=== PATIENT | female | born 1980 | race Hispanic/Latino ===

== ENCOUNTER 2018-10-17 13:16 | Emergency (ER) | payer BC ==
[2018-10-17 13:53] LABS: APPEARANCE,URINE CLOUDY (CLEAR); BILIRUBIN,URINE NEGATIVE (NEGATIVE); COLOR,URINE RED (YELLOW); GLUCOSE, URINE (UA) NEGATIVE (NEGATIVE); KETONES,URINE NEGATIVE (NEGATIVE); LEUKOCYTE ESTERASE ,URINE SMALL (NEGATIVE); NITRATE,URINE NEGATIVE (NEGATIVE); OCCULT BLOOD,URINE LARGE (NEGATIVE); PH,URINE 8.5 (5.0-8.0); PROTEIN,URINE 100 mg/dL (NEGATIVE); UROBILINOGEN,URINE 0.2 mg/dL (0.2-1.0)
[2018-10-17 14:00] LABS: HCG,QUAL RESULT POSITIVE (NEGATIVE)
[2018-10-17 14:07] LABS: RBC,URINE 51-100 /HPF (0-1)
[2018-10-17 14:08] LABS: BACTERIA,URINE Few /HPF (None Seen)
[2018-10-17 14:14] LABS: BASOPHILS % (AUTO) 0.8 % (0.0-5.0); EOSINOPHILS % (AUTO) 2.3 % (0.0-8.0); HEMATOCRIT 36.5 % (36-48); LYMPHOCYTES % (AUTO) 19.5 % (21.0-51.0); MEAN CORPUSCULAR HEMOGLOBIN 32.1 pg (27.0-33.0); MEAN CORPUSCULAR HGB CONC 33.7 g/dL (32.0-36.0); MEAN CORPUSCULAR VOLUME 95.4 fL (79-99); MONOCYTES % (AUTO) 6.4 % (3.0-13.0); PLATELET COUNT (AUTO) 178 K/uL (130-400); RED BLOOD CELL COUNT(AUTO) 3.83 MIL/uL (4.00-5.50); RED CELL DISTRIBUTION WIDTH 13.6 % (11.0-15.5); WHITE BLOOD COUNT (AUTO) 7.7 K/uL (4.8-10.8)
[2018-10-17 14:23] LABS: CREATININE 0.7 mg/dL (0.5-1.5); POTASSIUM 3.8 mmol/L (3.5-5.1)
[2018-10-17 14:26] LABS: INR 0.95 (0.85-1.15); PARTIAL THROMBOPLASTIN TIME 26.8 SEC (26.3-35.5)
[2018-10-17 14:52] LABS: ALBUMIN 3.5 g/dL (3.5-5.0); BILIRUBIN,TOTAL 0.4 mg/dL (0.2-1.0); TOTAL PROTEIN, SERUM 7.7 g/dL (6.0-8.3)
== END 2018-10-17 15:50 | disposition home or self-care (01) ==
LOC: EDH 13:16
DX: O20.0 Threatened abortion (principal); I10 Essential (primary) hypertension; Z3A.08 8 weeks gestation of pregnancy
CPT/HCPCS: 36415; 76801; 80053; 81001; 81025; 84702; 85025; 85610; 85730

== ENCOUNTER 2024-07-05 20:36 | Emergency (ER) | payer BC ==
[~2024-07-05] VITALS: Ht 160 cm; Wt 115.7 kg
[2024-07-05 20:40] VITALS: BP 147/82; PULSE 78; RESP 20; TEMP 97.5
[2024-07-05] MEDS ORDERED: INSULIN REGULAR, HUMAN 3ML 100 UNIT in 0.9%NACL 100ML 99 ML IV PRN (21:00)
[2024-07-05 21:19] LABS: RAPID GROUP A STREP negative (NEGATIVE)
[2024-07-05 21:24] LABS: SARS-CoV-2, RNA, NAAT POSITIVE SARS CoV-2 (NEGATIVE)
[2024-07-05 21:29] LABS: INFLUENZA TYPE A Negative For Type A (NEGATIVE); INFLUENZA TYPE B Negative For Type B (NEGATIVE)
--- NOTE | 2024-07-05 22:00 | ERN ---
ED Note History of Present Illness Stated Complaint: C/O COUGH, CONGESTION,PAIN TO EARS Chief Complaint: Cough Time Seen by MD: 20:39 Time Seen by Midlevel: 20:44 Dictation: 44-year-old female coming in complaining of cough congestion and anxiety this happened today at work. Patient states he also has ear fullness. Patient has a history of anxiety, hypertension and diabetes. Denies having any fever, nausea, or vomiting. Allergies: Coded Allergies: No Known Allergies (Unverified Allergy, Unknown, 07/05/24) Past Medical History Past Medical History: Anxiety, Hypertension Surgical History: None LMP: Jun 03, 2024 Review of System Dictation Constitutional: Negative for fever,chills, and weight loss Eyes: Negative for injury, pain,redness, and discharge ENT: Negative for injury,pain or swelling Cardiovascular: Negative for chest pain, palpitations, and edema Respiratory: Complaining of cough and congestion, no shortness a breath or wheezing Abdomen/GI: Negative for abdominal pain, nausea, vomiting, diarrhea, and constipation Back: Negative for injury and pain : Negative for injury, bleeding and discharge MS/Extremity: Negative for injury and deformity Skin: Negative for rash, and discoloration Neuro: Negative for headache, weakness, numbness, tingling, and seizure Psych: Negative for suicide ideation, homicidal ideation, and hallucinations Review of Systems: was completed Initial Vital Sign VS Vital Signs Date Time Temp Pulse Resp B/P (MAP) Pulse Ox O2 Delivery O2 Flow Rate FiO2 07/05/24 20:40 97.5 78 20 147/82 Room Air Physical Exam Dictation General: awake, alert, NAD Head/Face: Normocephalic, atraumatic Eyes: PERRL, EOMI, vision at baseline ENT: oral cavity clear, TMs clear, no signs of infection Neck: Trachea midline, supple, no nuchal rigidity Cardiovascular: RRR, normal S1/S2, No MRGs, no JVD Respiratory: CTAB, no respiratory distress, No rales or wheezes Abdomen: Soft, non-tender, non-distended, normal bowel sounds, no guarding or rebound. Skin: Warm, dry, normal turgor, no rash MS/Extremity: Pulses equal, no cyanosis, neurovascular intact, FROM Neuro: COAx4, GCS 15, strength 5/5, CN 2-12 intact, normal cerebellar exam, normal gait, Psych: Normal behavior, mood, and affect normal Results (Laboratory/Radiology) Laboratory/Radiology Laboratory Tests Test 07/05/24 20:40 Influenza Type A Antigen Negative For Type A Influenza Type B Antigen Negative For Type B SARS-CoV-2, RNA, NAAT POSITIVE SARS CoV-2 Group A Streptococcus Rapid negative (NEGATIVE) Labs Reviewed?: Yes EKG Comment: Date:07/05/2041 Time:2040 Ventricular rate:72 [place] interval:144 QRS duration:1 QT/QTc:409/448 EKG interpretation: Sinus rhythm, low voltage, precordial leads, borderline T abnormalities, diffuse leads Reviewed by ED Attending no STEMI interpreted by ER MD ED Course ED Course Orders Procedure Category Date Status Time Covid Rna Naat LAB 07/05/24 Complete 20:38 Influenza Type A & B, LAB 07/05/24 Complete Rapid 20:38 Rapid (Group A Strep) LAB 07/05/24 Complete 20:38 12 Lead Ekg Tracing- EKG 07/05/24 Logged Technical 20:43 Insulin Regular, PHA 07/05/24 Complete Human 3ml (Humulin R 21:00 Current Medications Medications (Trade) Dose Ordered Sig/Cecy Route PRN Reason Start Time Stop Time Status Last Admin Dose Admin Insulin Human Regular 100 unit/ Sodium Chloride 100 ml @ 0 mls/hr AD PRN IV HYPERGLYCEMIA PROTOCOL 07/05/24 21:00 07/05/24 20:51 DC Vital Signs Date Time Temp Pulse Resp B/P (MAP) Pulse Ox O2 Delivery O2 Flow Rate FiO2 07/05/24 20:40 97.5 78 20 147/82 Room Air Medical Decision Making MDM MDM: 44-year-old female coming in complaining of cough congestion and anxiety this happened today at work. Patient states he also has ear fullness. Patient has a history of anxiety, hypertension and diabetes. Denies having any fever, nausea, or vomiting. Lung sounds are clear to auscultation, patient isn't hypoxic or tachypneic. Vital signs are stable. Serologies positive for COVID. Discussed findings with patient, educated patient to follow up with PCP in 1-2 days, she can take jddx-pms-snosdfm medications to treat symptoms like Tylenol, Motrin for fever and decongestants for congestion. She verbalized understanding, answered all questions. Differential; viral syndrome, influenza, COVID Rationale: Tests considered and ordered secondary to shared decision making include: Previous outside records reviewed: Old ER visits. Risk of complication and/or morbidity or mortality of patient management: None Medications-Per medication reconciliation Need for hospitalization: Patient does not meet criteria for hospitalization. Need for emergency major/minor surgery: No There are no social concerns with this patient. Prescription drug management Prescriptions will include symptomatic care Patient's prior external medical records from other ER visits were reviewed by me as indicated. Prior testing and results from previous visits were reviewed. Prior tests were taken into account with medical decision making and resource utilization, independent historian/historians were used to obtain complete medical history. I independently interpreted the test that were performed, results were reviewed by me and considered findings on radiology if ordered. Medical management and examination interpretation discussions were had by me with other qualified healthcare professionals as indicated for the patient's care. DX & DISP Disposition: Discharge Departure Impression: Primary Impression: COVID Condition: Stable Additional Instructions: Your swabs came out positive for COVID. There is no specific medication to treat COVID. You can take oedo-uwj-idwczdo medications to treat fever and body aches like Tylenol or Motrin. Can also try itlo-rgb-kywsiwe decongestants like Mucinex to treat or congestion. Follow up with your primary doctor in 1-2 days and return to the ER if you have worsening symptoms. Referrals: PAULIE PRECIADO [facility] (PCP) Time of Disposition: 21:58 SHANTELLE NICOLE NP Jul 05, 2024 22:00
--- NOTE | 2024-07-06 08:24 | EKG ---
[facility] Test Date: 2024-07-05 Test Time: 20:41:26 Pat Name: LISA CHAVIRA Department: ED Room: Gender: F Director [employer]: [id number] : 1980 Requested By: SHANTELLE NICOLE Order Number: [id number] Reading MD: Ronak Tan Measurements Intervals [place] Rate: 72 P: -19 [place]: 144 QRS: 1 QRSD: 98 T: -6 QT: 409 QTc: 448 Interpretive Statements Sinus rhythm Low voltage, precordial leads Borderline T abnormalities, diffuse leads No previous ECG available for comparison Electronically Signed On 07-06-2024 17:03:45 REGULATORY CONSULTANT by Ronak Tan Please click the below link to view image of tracing.
== END 2024-07-05 22:08 | disposition home or self-care (01) ==
LOC: EDH 20:36
DX: U07.1 COVID-19 (principal); I10 Essential (primary) hypertension; F41.9 Anxiety disorder, unspecified
CPT/HCPCS: 87635; 87804; 87880; 93005; 99284